=== PATIENT | female | born 1975 | race Caucasian/White ===

== ENCOUNTER 2018-04-13 15:00 | Inpatient (IN) ==
[2018-04-13 16:10] LABS: BUN/Creatinine Ratio 5 (6-26); Blood Urea Nitrogen 3 mg/dL (6-20); Calcium 8.3 mg/dL (8.6-10.3); Carbon Dioxide 25 mEq/L (23-29); Chloride 106 mEq/L (98-107); Glucose 121 mg/dL (70-105); Osmolality,Calculated 282 (280-300); Potassium 3.6 mEq/L (3.5-5.1); Sodium 137 mEq/L (136-145); eGFR For Non-African Americans > 60 (> 60)
[2018-04-13 16:11] LABS: Basophils % 0.1 %; Eosinophils # 0.4 K/mcL (0.0-0.6); Eosinophils % 3.6 %; Hematocrit 17.9 % (35.3-44.9); Immature Granulocytes % 0.4 % (0-4); Lymphocytes # 2.1 K/mcL (0.6-4.6); Lymphocytes % 21.9 %; Mean Corpuscular HGB Conc 29.1 g/dL (31.6-35.5); Mean Corpuscular Hemoglobin 20.9 pg (28.0-33.3); Mean Corpuscular Volume 71.9 fL (83.0-100.0); Mean Platelet Volume 8.9 fL (9.4-12.4); Monocytes # 0.6 K/mcL (0.0-1.3); Monocytes % 6.5 %; Neutrophils # 6.6 K/mcL (1.6-8.9); Nucleated Red Blood Cells 0.2 /100 WBC (0); Platelet Count 341 K/mcL (140-400); Red Blood Count 2.49 M/mcL (3.82-4.97); Red Cell Distribution Width 17.9 % (11.5-14.5); Segmented Neutrophils % 67.5 %
[2018-04-13 16:13] LABS: Hemoglobin 5.2 g/dL (11.5-15.4)
[2018-04-13 16:33] LABS: Hypochromasia Present (Not Present)
[2018-04-13 16:34] LABS: Anisocytosis 2+ (Not Present); Platelet Estimate Normal (Normal)
[2018-04-13 17:00] LABS: INR 1.1
[2018-04-13] MEDS ORDERED: 0.9 % Sodium Chloride 500 ML ONE (18:12)
[2018-04-13 18:34] LABS: Bilirubin,Urine Negative (Negative); Blood,Urine Moderate (Negative); Clarity,Urine Clear (Clear); Color,Urine Yellow (Yellow); Glucose,Urine (UA) Normal (Normal); Ketones,Urine Negative (Negative); Leukocyte Esterase,Urine Negative (Negative); Nitrite,Urine Negative (Negative); PH,Urine 6.5 pH Units (5.0-8.0); Protein,Urine Negative (Neg-Trace); Specific Gravity,Urine 1.005 (1.010-1.025); Urobilinogen,Urine Normal (Normal)
[2018-04-13 18:35] LABS: Bacteria,Urine None Seen per hpf (None-Few); Hyaline Casts,Urine None Seen per lpf (None-Few); RBC,Urine 0-3 per hpf (0-3); Squamous Epithelial Cell,Urine Moderate per lpf (None-Few); WBC,Urine 0-3 per hpf (0-3)
--- NOTE | 2018-04-13 19:34 | Emergency Department Note ---
Disposition Clinical Impression: Vaginal bleeding Anemia Qualifiers: Anemia type: unspecified type Qualified Code(s): D64.9 - Anemia, unspecified Disposition: Admitted As Inpatient Condition: Good Referrals: Traci Rodriguez MD [Primary Care Provider] - Forms: ED Satisfaction Letter General Adult HPI - General Chief complaint: ED Vaginal Bleeding Stated complaint: Vaginal Bleeding / Dizzy / REGGIE Source: patient Limitations: no limitations Nursing Notes Reviewed: Yes Vital Signs Reviewed: Yes - History of Present Illness HPI Narrative: Patient presents today for evaluation of vaginal bleeding. She was seen in triage and had initial triage labs performed. Patient's hemoglobin found to be 5. Patient states that she started having her menstrual period on Friday. Patient had her normal 2 pads per day which increased to a proximally 6-8 pads per day on Friday. Patient noticed things trailing off into the weekend but things restarted with heavier bleeding on Friday. She states that she has gone through 3 months worse of pads/tampons. Patient states that she has had some lower abdominal cramping but does not have any specific tenderness. She has dizziness with standing and associated shortness of breath exertion. Patient will undergo further evaluation for vaginal bleeding. Pain Scale: 8 - Related Data Home Medications Medication Instructions Recorded Confirmed Ranitidine HCl [Acid Oyster Bed Worker] 150 mg PO BID 12/25/17 04/13/18 Trazodone HCl 100 mg PO HS 12/25/17 04/13/18 Disulfiram [Antabuse] 250 mg PO DAILY 04/13/18 04/13/18 Norgestimate-Ethinyl Estradiol 1 tab PO DAILY 04/13/18 04/13/18 [Sprintec 28 Day Tablet] Sertraline [Zoloft] 100 mg PO DAILY 04/13/18 04/13/18 Previous Rx's Medication Instructions Recorded traZODone [TraZODone] 50 mg PO HS tablet 12/25/17 Allergies Allergy/AdvReac Type Severity Reaction Status Date / Time No Known Allergies Allergy Verified 04/13/18 15:14 Review of Systems: As Per HPI Constitutional: Denies: fever, chills Cardiovascular: Reports: dyspnea on exertion. Denies: chest pain Respiratory: Denies: cough, dyspnea Gastrointestinal: Reports: abdominal pain (Lower abdominal cramping without tenderness), nausea. Denies: vomiting, diarrhea Genitourinary: Denies: urgency, dysuria Musculoskeletal: Denies: back pain Integumentary: Denies: rash, abrasion Neurological: Denies: headache Endocrine: Reports: fatigue Past Medical History - Past Medical History Medical history: Reports: no medical history, GERD, other Surgical history: Reports: other Psychiatric history: Reports: panic disorder WAREHOUSE PICKER history: Reports: no WAREHOUSE PICKER history - Social History Smoking Status: Never smoker Smokeless Tobacco Status: No Alcohol use: Reports: occasionally Drug use: Reports: none Physical Exam General: Well appearing, nontoxic, no acute distress Head: Normocephalic Atraumatic Eyes: PERRL, EOMI ENT: Airway patent, no stridor Neck: supple Chest: Lungs clear to auscultation bilateral Cardiac: Regular rhythm Abdomen: soft, nontender, nondistended; no guarding, rebound, or tenderness to percussion : Vaginal exam with small blood clot within the cervical os. This was removed with suction and there was no continued bleeding. Skin: No rash, normal skin tone Neuro: Alert and Oriented to person, place, and time; No focal deficit - General Limitations: no limitations General appearance: alert, in no apparent distress Course - Reevaluation(s) Reevaluation #1: Patient has passed another blood clot as well as had blood on vaginal probe. She continues to feel shortness of breath with exertion but have a hard time keeping her in bed and she likes to get up to walk around. Complains of dizziness. At this point the patient's hemoglobin was 5.2. 3 units of packed red blood cells have been ordered. I have discussed with WAREHOUSE PICKER who recommends ultrasound. - Consultations Consultation #1: Discussed with WAREHOUSE PICKER ultrasound results. The patient to receive Megace 40 mg twice a day. Patient needs to be admitted for further management they defer admission to hospitalist secondary to blood product transfusion. Consultation #2: Discussed with hospitalist. Will admit for transfusion monitoring however OB/ HOSPITAL EDUCATOR has been consulted for vaginal bleeding. Vital Signs Temperature 98.4 F 04/13/18 15:13 Pulse Rate 93 04/13/18 15:13 Respiratory Rate 18 04/13/18 15:13 Blood Pressure 116/60 04/13/18 15:13 O2 Sat by Pulse Oximetry 99 04/13/18 15:13 Temperature 98.9 F 04/13/18 21:07 Pulse Rate 75 08/06/18 21:07 Respiratory Rate 18 04/13/18 21:07 Blood Pressure 107/75 04/13/18 21:07 O2 Sat by Pulse Oximetry 100 04/13/18 21:07 Oxygen Delivery Oxygen Delivery Room Air Medical Decision Making - Lab Data Result diagrams: 04/13/18 15:41 04/13/18 15:41 Lab Results 04/13/18 04/13/18 04/13/18 Range/Units 15:41 15:41 15:41 WBC 9.7 (4.3-11.1) K/mcL RBC 2.49 L (3.82-4.97) M/mcL Hgb 5.2 L* (11.5-15.4) g/dL Hct 17.9 L (35.3-44.9) % MCV 71.9 L (83.0-100.0) fL MCH 20.9 L (28.0-33.3) pg MCHC 29.1 L (31.6-35.5) g/dL RDW 17.9 H (11.5-14.5) % Plt Count 341 (140-400) K/mcL MPV 8.9 L (9.4-12.4) fL Immature Gran % 0.4 (0-4) % Seg Neutrophils % 67.5 % Lymphocytes % 21.9 % Monocytes % 6.5 % Eosinophils % 3.6 % Basophils % 0.1 % Neutrophils # 6.6 (1.6-8.9) K/mcL Lymphocytes # 2.1 (0.6-4.6) K/mcL Monocytes # 0.6 (0.0-1.3) K/mcL Eosinophils # 0.4 (0.0-0.6) K/mcL Basophils # 0.0 (0.0-0.2) K/mcL Nucleated RBCs/100 WBC 0.2 H (0) /100 WBC Platelet Estimate Normal (Normal) Hypochromasia Present A (Not Present) Anisocytosis 2+ A (Not Present) PT (9.4-12.1) Seconds INR Sodium 137 (136-145) mEq/L Potassium 3.6 (3.5-5.1) mEq/L Chloride 106 (98-107) mEq/L Carbon Dioxide 25 (23-29) mEq/L BUN 3 L (6-20) mg/dL Creatinine 0.56 L (0.60-1.20) mg/dL Est GFR ( Amer) > 60 (> 60) Est GFR (Non-Af Amer) > 60 (> 60) BUN/Creatinine Ratio 5 L (6-26) Glucose 121 H (70-105) mg/dL Calculated Osmolality 282 (280-300) Calcium 8.3 L (8.6-10.3) mg/dL Urine Color (Yellow) Urine Clarity (Clear) Urine pH (5.0-8.0) pH Units Ur Specific [place] (1.010-1.025) Urine Protein (Neg-Trace) mg/dL Urine Glucose (UA) (Normal) mg/dL Urine Ketones (Negative) mg/dL Urine Blood (Negative) Urine Nitrite (Negative) Urine Bilirubin (Negative) Urine Urobilinogen (Normal) mg/dL Ur Leukocyte Esterase (Negative) Urine Microscopic RBC (0-3) per hpf Urine Microscopic WBC (0-3) per hpf Ur Squamous Epith Cells (None-Few) per lpf Urine Bacteria (None-Few) per hpf Hyaline Casts (None-Few) per lpf Ur Culture Indicated? (NO) Urine Test (Negative) Blood Type O POSITIVE Antibody Screen NEGATIVE Crossmatch See Detail 04/13/18 04/13/18 04/13/18 Range/Units 15:48 18:23 18:23 WBC (4.3-11.1) K/mcL RBC (3.82-4.97) M/mcL Hgb (11.5-15.4) g/dL Hct (35.3-44.9) % MCV (83.0-100.0) fL MCH (28.0-33.3) pg MCHC (31.6-35.5) g/dL RDW (11.5-14.5) % Plt Count (140-400) K/mcL MPV (9.4-12.4) fL Immature Gran % (0-4) % Seg Neutrophils % % Lymphocytes % % Monocytes % % Eosinophils % % Basophils % % Neutrophils # (1.6-8.9) K/mcL Lymphocytes # (0.6-4.6) K/mcL Monocytes # (0.0-1.3) K/mcL Eosinophils # (0.0-0.6) K/mcL Basophils # (0.0-0.2) K/mcL Nucleated RBCs/100 WBC (0) /100 WBC Platelet Estimate (Normal) Hypochromasia (Not Present) Anisocytosis (Not Present) PT 12.0 (9.4-12.1) Seconds INR 1.1 Sodium (136-145) mEq/L Potassium (3.5-5.1) mEq/L Chloride (98-107) mEq/L Carbon Dioxide (23-29) mEq/L BUN (6-20) mg/dL Creatinine (0.60-1.20) mg/dL Est GFR ( Amer) (> 60) Est GFR (Non-Af Amer) (> 60) BUN/Creatinine Ratio (6-26) Glucose (70-105) mg/dL Calculated Osmolality (280-300) Calcium (8.6-10.3) mg/dL Urine Color Yellow (Yellow) Urine Clarity Clear (Clear) Urine pH 6.5 (5.0-8.0) pH Units Ur Specific [place] 1.005 L (1.010-1.025) Urine Protein Negative (Neg-Trace) mg/dL Urine Glucose (UA) Normal (Normal) mg/dL Urine Ketones Negative (Negative) mg/dL Urine Blood Moderate H (Negative) Urine Nitrite Negative (Negative) Urine Bilirubin Negative (Negative) Urine Urobilinogen Normal (Normal) mg/dL Ur Leukocyte Esterase Negative (Negative) Urine Microscopic RBC 0-3 (0-3) per hpf Urine Microscopic WBC 0-3 (0-3) per hpf Ur Squamous Epith Cells Moderate H (None-Few) per lpf Urine Bacteria None Seen (None-Few) per hpf Hyaline Casts None Seen (None-Few) per lpf Ur Culture Indicated? NO (NO) Urine Test Negative (Negative) Blood Type Antibody Screen Crossmatch
--- NOTE | 2018-04-13 22:55 | Internal Med History&Physical ---
Date of Encounter: 04/13/18 Time of Encounter: 22:54 Internal Medicine - H&P: HPI Chief complaint: fatigue Admitted From: Home Plans for Post Hospital Care: Home History of present illness: Ms. Anand is a 42 year old female with a reported history of alcohol abuse who has placed on disulfiram by her PCP and was advised about the teratogenicity of it and therefore started taking hormonal contraceptives 4 months ago. She presents now with vaginal bleeding for 1 week. She states that she has regular periods and that it started last week Friday and on when she thought it was hide and skin fleshing machine operator, she had an urge to urinate and then noticed a gush of blood through her vagina. She continued to have bleeding over the course of days and over the last 2 days noticed debilitating fatigue, lightheadedness, shortness of breath with mild exertion and generalized malaise. She has also had abdominal cramping and expulsion of large clots. On arrival she was seen to have a Hgb of 5.2 with ongoing bleeding. Pelvic ultrasound was grossly unremarkable however there continued clots noted on the vaginal probe. PRBC transfusion was started and Ssn/Ssbn Weapons Equipment Operator consulted. On my assessment the patient was seen lying comfortably in bed in no acute distress denying any complaints of abdominal pain however she states she continues to have some mild bleeding and needs to change her pads. She denies being on any antiplatelet therapy or anticoagulants. He denies any over-the- counter medications or supplements. She denies any history of anemia or ever requiring a blood transfusion. She states that during her last delivery she had a hemorrhage but did not require transfusion. Past Med Surg Social Fam HX - Past Medical History Medical history: no medical history, GERD, other Psychiatric history: panic disorder - Past Surgical History Surgical History: other Additional surgical history: wisdom teeth february 2016 - Social History Smoking Status: Never smoker Smokeless Tobacco Status: No Alcohol use: occasionally Drug use: none Internal Medicine - H&P: Meds Ranitidine HCl [Acid Screwmaker Automatic] 150 mg PO BID 12/25/17 [History] Trazodone HCl 100 mg PO HS 12/25/17 [History] traZODone [TraZODone] 50 mg PO HS tablet 12/25/17 [Rx] Disulfiram [Antabuse] 250 mg PO DAILY 04/13/18 [History] Norgestimate-Ethinyl Estradiol [Sprintec 28 Day Tablet] 1 tab PO DAILY 04/13/18 [History] Sertraline [Zoloft] 100 mg PO DAILY 04/13/18 [History] 3 Allergy/AdvReac Type Severity Reaction Status Date / Time No Known Allergies Allergy Verified 04/13/18 15:14 All Systems PM: A 10-system review of systems was performed and is negative for pertinent findings except as documented above in the HPI. - Constitutional Vitals: Temp Pulse Resp BP Pulse Ox 98.9 F 75 18 107/75 100 04/13/18 21:07 04/13/18 21:07 04/13/18 21:07 04/13/18 21:07 04/13/18 21:07 Exam: Vitals: Reviewed and currently within normal limits General: Well-developed female lying comfortably in bed in no acute distress Skin: Warm and supple HEENT: Moist mucous membranes. Mild conjunctivae pallor. Neck: No lymphadenopathy. No JVD. No carotid bruits. No palpable thyroid. Chest: Normal thoracic expansion. Normal breath sounds. Clear to auscultation. Heart: Normal S1 & S2; rhythmic. No rubs or murmurs. Abdomen: Non-distended, soft and mild tenderness on deep palpation of the right lower quadrant. Extremities: No clubbing, cyanosis or edema. No calf tenderness. Normal distal pulses. Neurological: Awake, alert and oriented to person, place and time. No focal deficits. Psych: Affect appropriate. Internal Med - H&P Results - Labs CBC & Chem 7: 04/13/18 15:41 04/13/18 15:41 - Assessment and plan (1) Acute blood loss anemia Current Visit: Yes Status: Acute Assessment and plan: The patient presents with Hgb of 5.2 from hypermenorrhea of unclear etiology. It could be related to the recent initiation of hormonal contraception however at her age one should exclude leiomyomata, vaginal and endometrials polyps, adenomyosis, endometriosis, malignancy among other entities. -Will transfuse PRBC with goal Hgb >7mg/dl. -IVF. -Iron supplementation. -Ssn/Ssbn Weapons Equipment Operator consult. (2) Vaginal bleeding Current Visit: Yes Status: Acute Assessment and plan: as stated above. -ObGyn consult requested. (3) Alcohol dependence with uncomplicated intoxication Current Visit: Yes Status: Chronic Assessment and plan: Will hold on further use of disulfiram. No recent etoh ingestion. (4) DVT prophylaxis Current Visit: Yes Status: Acute Assessment and plan: Anti-embolic stockings ordered in the setting of active bleed. - Time Spent With Patient Total time spent is greater than 50% in coordination of care (as documented) at patient's floor/unit and/or counseling patient: Greater than 35 minutes
[2018-04-14] MEDS: 0.9 % Sodium Chloride 1,000 ML IVC SCH ×2 (00:04→07:58)
--- NOTE | 2018-04-14 02:33 | OB/GYN Consult Note ---
Date of Encounter: 04/14/18 Time of Encounter: 02:32 Assessment and Plan (1) Anemia Current Visit: Yes Status: Acute management per medicine Qualifiers: Anemia type: other cause Other causes of anemia: other cause, not classified Qualified Code(s): D64.89 - Other specified anemias (2) Vaginal bleeding Current Visit: Yes Status: Acute US reviewed and case discussed with Dr. Reyes Start Megace 40mg po BID Stop OCP while on Megace Will plan endometrial lining testing after discharge US finding shows: Unremarkable examination. Endometrial stripe thickness is at upper limits of normal, measuring up to 15 mm. This is the first heavy menses for this patient. Suspect underlying anemia of other cause, POC hgb on 02/2016 was 9.6, with no cause or follow up found in chart. Recommend iron studies and also rule out other causes for anemia like GI , liver given ETOH history. History of Present Illness Consult date: 04/14/18 Requesting physician: Licha Suarez Reason for consult: menorrhagia History of present illness: Ms. Anand is a 42 year old female with a reported history of alcohol abuse who has placed on antabuse started taking sptintec 4 months ago. She presented to ED with heavy menses for 1 week. She states that she has monthly menses usually moderate-light requiring 2 tampons a day. This month her menses started Friday, she continued to have bleeding though the weekend and over the last two days noticed fatigue, lightheadedness, shortness of breath with mild exertion. Slight cramping on the right side noted. Pt states she has never had heavy menses, started sprintec due to antabuse, has not used any other control the last few years, attempted to get without success over the last 12 year since last child. No family history of breast, uterine of vaginal cancer, mother had cervical cancer now in remission. Pt has annual pap smears with Dr. Rodriguez. Hgb of 5.2 with continued vaginal bleeding with clots noted in ED. Admitted to hospital service for blood transfusion. Past Med Surg Social Fam HX - Past Medical History Source: patient Medical history: no medical history, GERD, other Additional medical history: [place] Palsy Psychiatric history: anxiety, depression, panic disorder - Past Surgical History Surgical History: orthopedic, other, other Additional surgical history: wisdom teeth february 2016, hand surgery may 2017 - Social History Smoking Status: Current some day smoker Smokeless Tobacco Status: No Alcohol use: heavy Drug use: marijuana - Family History Mother Living Status: Still Living Hx Family Cancer: Yes (cervical cancer) Hx Family Endocrine Disorder: Yes (Diabetes) Father Living Status: Age at : 48 Cause of : Colon Cancer Hx Family Cancer: Yes Medications and Allergies Ranitidine HCl [Acid Test Engine Evaluator] 150 mg PO BID 12/25/17 [History] Trazodone HCl 100 mg PO HS PRN 12/25/17 [History] Disulfiram [Antabuse] 250 mg PO DAILY 04/13/18 [History] Norgestimate-Ethinyl Estradiol [Sprintec 28 Day Tablet] 1 tab PO HS 04/13/18 [ History] Sertraline [Zoloft] 100 mg PO HS 04/13/18 [History] 3 Allergy/AdvReac Type Severity Reaction Status Date / Time No Known Allergies Allergy Verified 04/13/18 15:14 Review of Systems Constitutional: as per HPI Exam - Vital Signs Vital signs: Initial Vital Signs Temp Pulse Resp BP Pulse Ox 98.4 F 93 18 116/60 99 04/13/18 15:13 04/13/18 15:13 04/13/18 15:13 04/13/18 15:13 04/13/18 15:13 - Constitutional Constitutional: well developed, well nourished, no acute distress, obese - Abdomen Abdomen: Present: non tender Results Result Diagrams: 04/13/18 15:41 04/13/18 15:41 Abnormal lab results RBC 2.49 M/mcL (3.82-4.97) L 04/13/18 15:41 Hgb 5.2 g/dL (11.5-15.4) L* 04/13/18 15:41 Hct 17.9 % (35.3-44.9) L 04/13/18 15:41 MCV 71.9 fL (83.0-100.0) L 04/13/18 15:41 MCH 20.9 pg (28.0-33.3) L 04/13/18 15:41 MCHC 29.1 g/dL (31.6-35.5) L 04/13/18 15:41 RDW 17.9 % (11.5-14.5) H 04/13/18 15:41 MPV 8.9 fL (9.4-12.4) L 04/13/18 15:41 Nucleated RBCs/100 WBC 0.2 /100 WBC (0) H 04/13/18 15:41 Hypochromasia Present (Not Present) A 04/13/18 15:41 Anisocytosis 2+ (Not Present) A 04/13/18 15:41 BUN 3 mg/dL (6-20) L 04/13/18 15:41 Creatinine 0.56 mg/dL (0.60-1.20) L 04/13/18 15:41 BUN/Creatinine Ratio 5 (6-26) L 04/13/18 15:41 Glucose 121 mg/dL (70-105) H 04/13/18 15:41 Calcium 8.3 mg/dL (8.6-10.3) L 04/13/18 15:41 Ur Specific [place] 1.005 (1.010-1.025) L 04/13/18 18:23 Urine Blood Moderate (Negative) H 04/13/18 18:23 Ur Squamous Epith Cells Moderate per lpf (None-Few) H 04/13/18 18:23 All other labs normal. Consult Discharge Plan - Plan Referrals: Traci Rodriguez MD [Primary Care Provider] -
[2018-04-14] MEDS ORDERED: 0.9 % Sodium Chloride 250 ML ONE (04:05)
[2018-04-14 07:49] LABS: Basophils % 0.4 %; Eosinophils # 0.4 K/mcL (0.0-0.6); Eosinophils % 4.1 %; Hematocrit 20.2 % (35.3-44.9); Hemoglobin 6.3 g/dL (11.5-15.4); Immature Granulocytes % 0.3 % (0-4); Lymphocytes # 2.9 K/mcL (0.6-4.6); Mean Corpuscular HGB Conc 31.2 g/dL (31.6-35.5); Mean Corpuscular Hemoglobin 22.7 pg (28.0-33.3); Mean Corpuscular Volume 72.7 fL (83.0-100.0); Mean Platelet Volume 9.3 fL (9.4-12.4); Monocytes # 0.6 K/mcL (0.0-1.3); Monocytes % 6.4 %; Neutrophils # 5.9 K/mcL (1.6-8.9); Nucleated Red Blood Cells 0.2 /100 WBC (0); Platelet Count 303 K/mcL (140-400); Red Blood Count 2.78 M/mcL (3.82-4.97); Red Cell Distribution Width 18.6 % (11.5-14.5); Segmented Neutrophils % 59.8 %
[2018-04-14] MEDS: Famotidine 20 MG TABLET PO SCH ×2 (07:55→21:15)
[2018-04-14 08:36] LABS: % Iron Saturation 6 % (15-50); Alanine Aminotransferase 10 Units/L (7-52); Albumin/Globulin Ratio 1.2 (1.1-2.2); Alkaline Phosphatase 50 Units/L (34-104); Aspartate Amino Transferase 19 Units/L (13-39); BUN/Creatinine Ratio 8 (6-26); Bilirubin,Total 0.7 mg/dL (0.3-1.0); Blood Urea Nitrogen 4 mg/dL (6-20); Calcium 7.8 mg/dL (8.6-10.3); Carbon Dioxide 23 mEq/L (23-29); Chloride 108 mEq/L (98-107); Globulin 2.6 g/dL (2.4-3.5); Glucose 110 mg/dL (70-105); Iron 26 mcg/dL (50-170); Osmolality,Calculated 284 (280-300); Potassium 3.4 mEq/L (3.5-5.1); Sodium 138 mEq/L (136-145); Total Protein 5.6 g/dL (6.4-8.9); Transferrin 306 mg/dL (203-362); eGFR For Non-African Americans > 60 (> 60)
[2018-04-14 09:02] LABS: Ferritin < 8 ng/mL (10-120)
[2018-04-14] MEDS ORDERED: 0.9 % Sodium Chloride 250 ML IVC SCH (09:45)
--- NOTE | 2018-04-14 12:56 | Internal Med Progress Note ---
Hospitalist Progress Note - Encounter Date of Encounter: 04/14/18 Time of Encounter: 10:00 - Subjective Interval History: Improved fatigue and shortness of breath. Denies chest pain, palpitations, dizziness or syncope. This is the first episode of menorrhagia per patient. Denies hematochezia, melena, hematuria. Quit alcohol since 4 months. - Exam Vitals: Temp Pulse Resp BP Pulse Ox 98.4 F 86 14 104/70 97 04/14/18 11:24 04/14/18 11:24 04/14/18 11:24 04/14/18 11:24 04/14/18 11:24 Exam: General: Well-developed female lying comfortably in bed in no acute distress, obese HEENT: Moist mucous membranes. Chest: Normal thoracic expansion. Normal breath sounds. Clear to auscultation. Heart: Normal S1 & S2; rhythmic. No rubs or murmurs. Extremities: No clubbing, cyanosis or edema. No calf tenderness. Normal distal pulses. Neurological: Awake, alert and oriented to person, place and time. No focal deficits. Psych: Affect appropriate. - Assessment and Plan (1) Acute blood loss anemia Current Visit: Yes Status: Acute Assessment and Plan: Previous hemoglobin in December 2017 noted to be 10.4. Acute on chronic microcytic anemia, likely secondary to menorrhagia/vaginal bleed. Presented with hemoglobin 5.2, improved to 6.3 after 2 units PRBC transfusion. We will plan to give 1 more unit of packed red blood cells. Iron profile shows low iron stores, will start oral ferrous sulfate supplements. Serum vitamin B12 and folate levels noted to be normal. Pending stool occult blood test. (2) Alcohol dependence with uncomplicated intoxication Current Visit: Yes Status: Chronic Assessment and Plan: Patient follows with outpatient counseling, noted to be on disulfiram and naltrexone for alcohol dependence and withdrawal treatment. Both these medications are noted to be hepatotoxic. Recommend close outpatient monitoring. Currently no signs or symptoms of alcohol withdrawal. (3) Vaginal bleeding Current Visit: Yes Status: Acute Assessment and Plan: Gynecology consult appreciated. Recommend to stop oral contraceptive pills, started on megestrol. Bleeding improving. Pelvic ultrasound is unremarkable with endometrial stripe thickness at upper limits of normal. Recommend outpatient gynecology follow-up. (4) DVT prophylaxis Current Visit: Yes Status: Acute Assessment and Plan: Anti-embolic stockings ordered in the setting of active bleed. - Time Spent with Patient Total time spent is greater than 50% in coordination of care (as documented) at patient's floor/unit and/or counseling patient: Internal Medicine: Result - Labs CBC & Chem 7: 04/14/18 07:37 04/14/18 07:37 Labs: Short CBC 04/14/18 Range/Units 07:37 WBC 10.0 (4.3-11.1) K/mcL Hgb 6.3 L (11.5-15.4) g/dL Hct 20.2 L (35.3-44.9) % Plt Count 303 (140-400) K/mcL Neutrophils # 5.9 (1.6-8.9) K/mcL BMP 04/14/18 07:37 Sodium 138 Potassium 3.4 L Chloride 108 H Carbon Dioxide 23 BUN 4 L Creatinine 0.50 L Glucose 110 H Calcium 7.8 L Liver Function 04/14/18 Range/Units 07:37 Total Bilirubin 0.7 (0.3-1.0) mg/dL AST 19 (13-39) Units/L ALT 10 (7-52) Units/L Alkaline Phosphatase 50 (34-104) Units/L Albumin 3.0 L (3.5-5.7) g/dL - ABG Interpretation ABG results: PT/INR, D-dimer PT 12.0 Seconds (9.4-12.1) 04/13/18 15:48 - VTE Documentation of Mechanical Device: Graduated compression elastic hosiery Consult Discharge Plan - Plan Referrals: Traci Rodriguez MD [Primary Care Provider] -
[2018-04-14 17:28] LABS: Hematocrit 25.7 % (35.3-44.9); Hemoglobin 8.1 g/dL (11.5-15.4)
[2018-04-14] MEDS ORDERED: Acetaminophen 325 MG TABLET PO PRN (21:26)
[2018-04-15 05:11] LABS: Basophils # 0.1 K/mcL (0.0-0.2); Basophils % 0.5 %; Eosinophils # 0.5 K/mcL (0.0-0.6); Eosinophils % 3.9 %; Hematocrit 25.6 % (35.3-44.9); Hemoglobin 7.9 g/dL (11.5-15.4); Immature Granulocytes % 0.7 % (0-4); Lymphocytes # 3.2 K/mcL (0.6-4.6); Lymphocytes % 25.9 %; Mean Corpuscular HGB Conc 30.9 g/dL (31.6-35.5); Mean Corpuscular Hemoglobin 23.4 pg (28.0-33.3); Mean Corpuscular Volume 75.7 fL (83.0-100.0); Mean Platelet Volume 9.6 fL (9.4-12.4); Monocytes # 0.8 K/mcL (0.0-1.3); Monocytes % 6.4 %; Neutrophils # 7.6 K/mcL (1.6-8.9); Nucleated Red Blood Cells 0.4 /100 WBC (0); Platelet Count 315 K/mcL (140-400); Red Blood Count 3.38 M/mcL (3.82-4.97); Red Cell Distribution Width 19.9 % (11.5-14.5); Segmented Neutrophils % 62.6 %
[2018-04-15 05:33] LABS: BUN/Creatinine Ratio 13 (6-26); Blood Urea Nitrogen 6 mg/dL (6-20); Calcium 8.9 mg/dL (8.6-10.3); Carbon Dioxide 24 mEq/L (23-29); Chloride 108 mEq/L (98-107); Glucose 113 mg/dL (70-105); Osmolality,Calculated 282 (280-300); Sodium 137 mEq/L (136-145); eGFR For Non-African Americans > 60 (> 60)
[2018-04-15] MEDS: Famotidine 20 MG TABLET PO SCH (07:55)
--- NOTE | 2018-04-15 12:56 | Gastroenterology Consult Note ---
<See Hodges - Last Filed: 04/15/18 12:54> Date of Encounter: 04/15/18 Time of Encounter: 11:20 - Assessment and plan (1) Family history of colon cancer in father Status: Acute Assessment and plan: Father at age 48 of colon cancer. Patient is due for screening colonoscopy. (2) Anemia Status: Acute Assessment and plan: Patient presented with Hgb 5.2 with MCV 71.9. Today Hgb 7.9 with MCV 75.7. Likely secondary to heavy vaginal bleeding. Fecal occult blood test positive. Plan for EGD and colonoscopy as outpatient sooner. Telephone encounter sent to procedure tailman. Qualifiers: Anemia type: other cause Other causes of anemia: other cause, not classified Qualified Code(s): D64.89 - Other specified anemias (3) Vaginal bleeding Status: Acute Assessment and plan: manager nc following due to heavy menstrual bleeding. - Time Spent With Patient Total time spent is greater than 50% in coordination of care (as documented) at patient's floor/unit and/or counseling patient: GI History of Present Illness - Data of Consult Patient: new to practice Consult date: 04/15/18 Requesting Physician: Cassandra Baig MD - Consult Narrative Reason for consult: anemia History of present illness: Ms. Anand is a 42 year old female with PMHx of GERD, panic disorder, alcohol abuse who presented to the ED with vaginal bleeding for 1 week. manager nc has been consulted and is following. Transvaginal US was unremarkable with endometrial stripe thickness is at upper limits of normal. We were consulted to evaluate her anemia. Patient presented with Hgb 5.2 with MCV 71.9. Today Hgb 7.9 with MCV 75.7. She has received total of 3 units PRBC during admission. Fecal occult blood test positive on 04/14. Iron level low at 26 with low ferritin of <8. She was started on iron supplementation. Pt reports her father at age 48 of colon cancer. Procedures: None NSAIDs: None Anticoagulation: None Past Med Surg Social Fam HX - Past Medical History Medical history: no medical history, GERD, other Additional medical history: [place] Palsy Psychiatric history: anxiety, depression, panic disorder - Past Surgical History Surgical History: orthopedic, other, other Additional surgical history: wisdom teeth february 2016, hand surgery may 2017 - Social History Smoking Status: Current some day smoker Smokeless Tobacco Status: No Alcohol use: heavy Drug use: marijuana - Family History Mother Living Status: Still Living Hx Family Cancer: Yes (cervical cancer) Hx Family Endocrine Disorder: Yes (Diabetes) Father Living Status: Age at : 48 Cause of : Colon Cancer Hx Family Cancer: Yes - Gastrointestinal Gastrointestinal: Present: as per HPI - Constitutional Constitutional: as per HPI - EENT Eyes: as per HPI Ears: Present: as per HPI Nose, mouth and throat: Present: as per HPI - Cardiovascular Cardiovascular ROS: Present: as per HPI - Respiratory Respiratory IM: Present: as per HPI - Genitourinary Genitourinary: Absent: change in color, Urinary frequency - Neurological ROS Neurological GI: Present: as per HPI - Hematologic/Lymphatic Hematologic/Lymphatic pediatric: Present: as per HPI - Musculoskeletal Musculoskeletal ROS GI: Present: as per HPI - Integumentary Integumentary GI: Present: as per HPI - Psychiatric ROS Psychiatric GI: Present: as per HPI - Endocrine Endocrine IM: Present: as per HPI - Constitutional Vitals: Temp Pulse Resp BP Pulse Ox 98.4 F 82 15 111/41 99 04/15/18 10:45 04/15/18 10:45 04/15/18 10:45 04/15/18 10:45 04/15/18 10:45 General appearance: Present: cooperative, A&O X 3, no acute distress, answers questions appropriately - Head Head exam: Present: atraumatic, normocephalic - Eye Eye exam: Present: normal appearance, sclera anicteric - ENT ENT exam: Present: mucous membranes moist - Neck Neck exam general surgery: Present: normal inspection, trachea midline - Respiratory Respiratory exam: Present: CTAB. Absent: rales, rhonchi, wheezes - Cardiovascular Cardiovascular exam: Present: RRR, +S1, +S2 - GI/Abdominal GI/Abdominal exam: Present: soft, no peritoneal signs. Absent: distended, firm , guarding, tenderness - Rectal Rectal exam: Present: deferred - Extremities Exam Extremities exam: Present: warm - Neurological Exam Neurological exam: Present: no focal deficits - Psychiatric Psychiatric exam: Present: normal affect, normal mood - Skin Skin exam: Present: dry, intact, normal color, warm Results - Labs CBC & Chem 7: 04/15/18 04:47 04/15/18 04:47 Labs: Last Result Calcium 8.9 mg/dL (8.6-10.3) 04/15/18 04:47 Iron 26 mcg/dL (50-170) L 04/14/18 07:37 % Saturation 6 % (15-50) L 04/14/18 07:37 Transferrin 306 mg/dL (203-362) 04/14/18 07:37 Ferritin < 8 ng/mL (10-120) L 04/14/18 07:37 Vitamin B12 415 pg/mL (250-1100) 04/14/18 07:59 Folate 13.0 ng/mL (3.0-16.0) 04/14/18 07:59 Stool Occult Blood Positive (Negative) A 04/14/18 10:44 Entire Visit Hgb 7.9 g/dL (11.5-15.4) L 04/15/18 04:47 Hct 25.6 % (35.3-44.9) L 04/15/18 04:47 PT 12.0 Seconds (9.4-12.1) 04/13/18 15:48 Ferritin < 8 ng/mL (10-120) L 04/14/18 07:37 Total Bilirubin 0.7 mg/dL (0.3-1.0) 04/14/18 07:37 AST 19 Units/L (13-39) 04/14/18 07:37 ALT 10 Units/L (7-52) 04/14/18 07:37 Folate 13.0 ng/mL (3.0-16.0) 04/14/18 07:59 - ABG ABG results: PT/INR, D-dimer PT 12.0 Seconds (9.4-12.1) 04/13/18 15:48 Consult Discharge Plan - Plan Instructions: Menstruation (GEN), Blood Transfusion (DC), Anemia (DC) Additional Instructions: F/up with FOOD SAFETY SCIENTIST in 2-3 weeks F/up with GI as scheduled, for Colonoscopy Referrals: Ashley Reyes MD [Partnered Physician] - 04/30/18 10:45 am Gaudencio Carpenter MD [Partnered Physician] - (Web request entered. Office will call patient with date and time of appointment. Thank you.) Prescriptions: Ferrous Sulfate 325 mg PO TIDWM #60 tablet <Aniket Durant - Last Filed: 04/27/18 04:26> Date of Encounter: 04/15/18 - Time Spent With Patient Total time spent is greater than 50% in coordination of care (as documented) at patient's floor/unit and/or counseling patient: GI History of Present Illness - Data of Consult Requesting Physician: Cassandra Baig MD - Consult Narrative History of present illness: Ms. Anand is a 42 year old female - Constitutional Vitals: Temp Pulse Resp BP Pulse Ox 98.5 F 72 15 121/70 94 04/15/18 14:30 04/15/18 14:30 04/15/18 14:30 04/15/18 14:30 04/15/18 14:30 Results - Labs CBC & Chem 7: 04/15/18 04:47 04/15/18 04:47 Labs: Last Result Calcium 8.9 mg/dL (8.6-10.3) 04/15/18 04:47 Iron 26 mcg/dL (50-170) L 04/14/18 07:37 % Saturation 6 % (15-50) L 04/14/18 07:37 Transferrin 306 mg/dL (203-362) 04/14/18 07:37 Ferritin < 8 ng/mL (10-120) L 04/14/18 07:37 Vitamin B12 415 pg/mL (250-1100) 04/14/18 07:59 Folate 13.0 ng/mL (3.0-16.0) 04/14/18 07:59 Stool Occult Blood Positive (Negative) A 04/14/18 10:44 Entire Visit Hgb 7.9 g/dL (11.5-15.4) L 04/15/18 04:47 Hct 25.6 % (35.3-44.9) L 04/15/18 04:47 PT 12.0 Seconds (9.4-12.1) 04/13/18 15:48 Ferritin < 8 ng/mL (10-120) L 04/14/18 07:37 Total Bilirubin 0.7 mg/dL (0.3-1.0) 04/14/18 07:37 AST 19 Units/L (13-39) 04/14/18 07:37 ALT 10 Units/L (7-52) 04/14/18 07:37 Folate 13.0 ng/mL (3.0-16.0) 04/14/18 07:59 - ABG ABG results: PT/INR, D-dimer PT 12.0 Seconds (9.4-12.1) 04/13/18 15:48 - Attending Attestation Ms. Anand presents with severe iron deficiency anemia with vaginal bleeding. She has been seen by obgyn. However the literature bears out that often GI source is found in roughly two thirds of patients with severe anemia secondary to the above. Will plan EGD and colonoscopy as outpatient very soon. Her father had colono cancer at a relatively young age. Ulterine fibroids were suggested on scanning which I reviewed myself. I have personally performed a face to face evaluation on this patient. I have reviewed and agree with the care plan. History and Exam by me shows:
--- NOTE | 2018-04-15 14:26 | Discharge Summary ---
- NOTES TO OUTPATIENT PROVIDER Notes to Outpatient Provider: Acute on chronic microcytic anemia due to menorrhagia, improved; needs outpatient GI and INSTALLMENT AGENT f/up; started on iron supplements; Date of Encounter: 04/15/18 Time of Encounter: 08:30 - Discharge Diagnosis (1) Acute blood loss anemia Priority: Primary Status: Acute (2) Alcohol dependence with uncomplicated intoxication Priority: Secondary Status: Chronic (3) Vaginal bleeding Priority: Primary Status: Acute Hospital course: Ms. Anand is a 42 year old female who was admitted with symptomatic anemia and heavy vaginal bleeding. Her Hb was noted to be 5.2 at admission. Previous hemoglobin in December 2017 noted to be 10.4. Improved to 7.9 today after 2units PRBC transfusion. Iron profile shows low iron stores, started on oral ferrous sulfate supplements. Serum vitamin B12 and folate levels noted to be normal. Stool occult blood test was positive; case d/w GI- recommend early outpatient screening colonoscopy, will be provided with an appointment. INSTALLMENT AGENT was consulted for menorrhagia, started her on Megestrol and her bleeding significantly improved today. Case d/w INSTALLMENT AGENT cheese maker, agreed with discharge, may stop Megestrol and resume OCPs at home, f/up in INSTALLMENT AGENT clinic. SHe was advised regarding continued alcohol abstinence and close f/up with her counselor as she is noted to be on Disulfiram and Naltrexone for alcohol withdrawal and abstinence, and they are hepatotoxic. SHe is otherwise medically stable for discharge. Discharge discussed with: patient, nurse, qm consultant - Time Spent with Patient Total time spent providing and/or coordinating discharge services: Greater than 30 minutes (45 min) - Discharge Medications Prescriptions: Ferrous Sulfate 325 mg PO TIDWM #60 tablet Home Medications: Ranitidine HCl [Acid Coin Box Collector] 150 mg PO BID 12/25/17 [History] Trazodone HCl 100 mg PO HS PRN 12/25/17 [History] Disulfiram [Antabuse] 250 mg PO DAILY 04/13/18 [History] Norgestimate-Ethinyl Estradiol [Sprintec 28 Day Tablet] 1 tab PO HS 04/13/18 [ History] Sertraline [Zoloft] 100 mg PO HS 04/13/18 [History] Ferrous Sulfate 325 mg PO TIDWM #60 tablet 04/15/18 [Rx] Allergies/Adverse Reactions: 3 Allergy/AdvReac Type Severity Reaction Status Date / Time No Known Allergies Allergy Verified 04/13/18 15:14 Date of admission: 04/13/18 21:36 Primary care physician: Traci Rodriguez MD Consults: 04/15/18 09:22 Consult to Gastroenterology [CONS] Routine Consulting Provider: Gastro[facility] Reason for Consult: Acute on chronic microcytic anemia, vaginal bleeding; stool occult positive; Call Completed: Yes Discharging clinician: Cassandra Baig Anticipated date of discharge: 04/15/18 - Constitutional Vitals: Temp Pulse Resp BP Pulse Ox 98.4 F 82 15 111/41 99 04/15/18 10:45 04/15/18 10:45 04/15/18 10:45 04/15/18 10:45 04/15/18 10:45 General appearance: Present: A&O X 3, morbidly obese, answers questions appropriately - Cardiovascular Cardiovascular exam: Present: RRR, +S1, +S2. Absent: diastolic murmur, gallop, rubs, systolic murmur - Patient Status Disposition: Home, Self-Care Condition: Good Functional capacity at discharge: independent ambulation Overall status at discharge: patient is progressing back to baseline - Discharge Instructions Follow Up With: Traci Rodriguez MD [Primary Care Provider] - Additional Instructions: F/up with INSTALLMENT AGENT in 2-3 weeks F/up with GI as scheduled, for Colonoscopy - Diet and Activity Activity: resume usual activities as tolerated Diet: low fat, low cholesterol, other (iron-fortified) - VTE Documentation of Mechanical Device: Graduated compression elastic hosiery
[2018-04-15 14:32] VITALS: BP 121/70
== END 2018-04-15 16:16 | disposition home or self-care (01) | DRG 532 ==
LOC: EMEROO 15:00 → 3ANU 15:00 → SUATTDRO 21:36 → 3ANU 22:36
PROVIDERS: ADMIT Internal Medicine; ATTEND Internal Medicine